=== PATIENT | male | born 1935 | race Caucasian/White ===

== ENCOUNTER 2018-04-13 09:22 | Day surgery (SDC) | payer MEDICARE, BC ==
[2018-04-13] VITALS (7 sets, daily range): BP systolic 114–141; BP diastolic 52–88
[~2018-04-13] VITALS: Ht 170.2 cm; Wt 88.0 kg
--- NOTE | 2018-04-13 06:57 | Anethesia Preoperative Eval ---
Anesthesia Pre-op PMH/ROS General Date of Evaluation: Apr 13, 2018 Time of Evaluation: 06:56 Anesthesiologist: ra ASA Score: ASA 4 Mallampati Score Class I : Soft palate, uvula, fauces, pillars visible Class II: Soft palate, uvula, fauces visible Class III: Soft palate, base of uvula visible Class IV: Only hard plate visible Mallampati Classification: Class II Surgeon: najma Diagnosis: abdominal pain Surgical Procedure: egd/colonoscopy Anesthesia History: none Social History: smoking - nonsmoker Family History: no anesthesia problems Allergies: Coded Allergies: CODEINE (Verified Allergy, Severe, 04/13/18) ANAPHYLACTIC SHOCK DICLOFENAC (Verified Allergy, Severe, 04/13/18) anaphylactic shock MEPERIDINE (Verified Adverse Reaction, Severe, 04/13/18) VOMITING Medications: see eMAR Past Medical History Cardiovascular: Reports: HTN, CAD, NV, other - cardiac stent Gastrointestinal/Genitourinary: Reports: GERD Endocrine: Reports: DM HEENT: Reports: cataract (L), cataract (R) Musculoskeletal/Integumentary: Reports: OA Anesthesia Pre-op Phys. Exam Physician Exam Last Vital Signs Date Time Temp Pulse Resp B/P (MAP) Pulse Ox O2 Delivery O2 Flow Rate FiO2 04/13/18 10:29 98.1 55 20 141/73 (95) 98 98.1 04/13/18 10:27 Room Air Constitutional: NAD Neurologic: CN 2-12 intact Cardiovascular: RRR Respiratory: CTA Gastrointestinal: S/NT/ND Airway Exam Mallampati Score: Class II MO: limited Neck: short TMD: 2fb ROM: limited Anesthesia Pre-op A/P Risk Assessment & Plan Assessment: asa4 Plan: mac Status Change Before Surgery: No Pre-Antibiotics Drug: Socorro Torres MD Apr 13, 2018 06:57
[~2018-04-13 09:22] MED LIST: ASPIRIN81 M1 PO; Atropine Inj 1mg/10ml Syr IV PRN; CALCIUM500 MG PO; CRESTOR10 MG PO; DiphenhydrAMINE 50mg/ml Inj IVP PRN; FLAXSEED OIL1000 M1 PO; FLOMAX0.4 MG PO; KRISTALOSE20 GM PO; LR 1000ml 1,000 ML IVLG SCH; Labetalol 5mg/ml 20ml vial IV PRN; MAGNESIUM PLUS GT; Midazolam 2mg/2ml Inj IVP PRN; NEXIUM40 MG PO; NIASPAN500 MG PO; PLAVIX75 MG PO; PROSCAR5 MG PO; TOPROL XL25 MG PO; VITAMIN D33000 UNIT PO
[2018-04-13] MEDS ORDERED: OMEPRAZOLE40 M1 ORAL (10:26)
[2018-04-13] MEDS ORDERED: METOPROLOL TAR100 M1 ORAL (10:26)
[2018-04-13] MEDS ORDERED: Atropine Sulfate 0.4mg/ml inj ONE (13:00)
[2018-04-13] MEDS ORDERED: Propofol 200mg/20ml IV ONE (13:00)
[2018-04-13] MEDS ORDERED: LR 1000ml ONE (13:00)
[2018-04-13] MEDS ORDERED: Lidocaine 1% MPF 10mg/ml 5ml ONE (13:00)
--- NOTE | 2018-04-13 13:10 | Short Stay Surgery H&P ---
History of Present Illness History of Present Illness Chief Complaint Abdominal pains and screening colon history of familial colon CA HPI Hank De La Cruz is a 83 year old male who was admitted on for Abdominal Pain/ screening colon Patient History Allergies: Coded Allergies: CODEINE (Verified Allergy, Severe, 04/13/18) ANAPHYLACTIC SHOCK DICLOFENAC (Verified Allergy, Severe, 04/13/18) anaphylactic shock MEPERIDINE (Verified Adverse Reaction, Severe, 04/13/18) VOMITING PAST MEDICAL HISTORY: (1) Hypertension (2) Hyperlipidemia (3) BPH (benign prostatic hyperplasia) (4) Coronary artery disease Medication History Scheduled Aspirin (Aspirin), 81 MG PO DAILY, (Reported) Clopidogrel Bisulfate* (Plavix*), 75 MG PO DAILY, (Reported) Finasteride* (Proscar*), 5 MG PO DAILY, (Reported) Metoprolol Tartrate* (Metoprolol Tartrate*), 100 MG ORAL da, (Reported) Omeprazole (Omeprazole), 40 MG ORAL DAILY, (Reported) Rosuvastatin Calcium* (Crestor*), 5 MG PO QHS, (Reported) Tamsulosin HCl (Flomax), 0.4 MG PO DAILY, (Reported) Miscellaneous Medications Cholecalciferol (Vitamin D3) (Vitamin D3), 3,000 UNIT PO, (Reported) Magnesium (Magnesium Plus), 1 EA GT, (Reported) Niacin (Niaspan), 500 MG PO, (Reported) Discontinued Medications Calcium Carbonate (Calcium), 500 MG PO, (Reported) Discontinued Reason: Pt stopped taking med Esomeprazole Magnesium (Nexium), 40 MG PO DAILY, (Reported) Discontinued Reason: Pt stopped taking med Flaxseed Oil (Flaxseed Oil), 1,000 MG PO, (Reported) Discontinued Reason: Pt stopped taking med Lactulose (Kristalose), 20 GM PO, (Reported) Discontinued Reason: Pt stopped taking med Review of Systems Cardiovascular: Reports: hypertension Respiratory: Reports: no symptoms Skeletal: Reports: no symptoms Gastrointestinal: Reports: gastro esophageal reflux disease Genitourinary: Reports: BPH Neurologic: Reports: no symptoms Endocrine: Reports: no symptoms Hematologic: Reports: no symptoms Physical Exam Vital Signs Last Vital Signs Date Time Temp Pulse Resp B/P (MAP) Pulse Ox O2 Delivery O2 Flow Rate FiO2 04/13/18 10:29 98.1 55 20 141/73 (95) 98 98.1 04/13/18 10:27 Room Air Skin: normal HENT: normal Heart: normal Lungs: normal Abdomen: abnormal Extremities: normal Genitourinary: normal Plan Plan of Care Upper and lower GI endoscopy with biopsy Preop Interventions None Summary of Findings see the reports Attestation Are the patient's medical conditions optimized for surgery? Attestation Response: yes Adrian Jimenez MD Apr 13, 2018 13:10
--- NOTE | 2018-04-13 13:11 | Pre-Procedure Note/Attestation ---
Pre-Procedure Note/Attestation Complete Prior to Procedure Planned Procedure: left Procedure Narrative: Examination of the upper and lower GI tract via endoscopy Indications for Procedure Pre-Operative Diagnosis: R/O gastric peptic ulcer/ gastritis/colon CA/polyps Attestation I attest that I discussed the nature of the procedure; its benefits; risks and complications; and alternatives (and the risks and benefits of such alternatives ), prior to the procedure, with the patient (or the patient's legal compliance representative dealer). I attest that, if there was a reasonable possibility of needing a blood transfusion, the patient (or the patient's legal compliance representative dealer) was given the [facility] standardized written summary, pursuant to the [place] Blood Safety Act ([place] Health and Safety Code # 1645, as amended). I attest that I re-evaluated the patient just prior to the surgery and that there has been no change in the patient's H&P, except as documented below: Adrian Jimenez MD Apr 13, 2018 13:11
--- NOTE | 2018-04-13 14:15 | Discharge Instructions ---
Discharge Instructions Discharge Instructions Follow up with: Visit the the doctor in office after 2 weeks For Congestive Heart Failure Reminder Report to your physician any weight gain of 5 pounds or more in one week. Adrian Jimenez MD Apr 13, 2018 14:15
--- NOTE | 2018-04-13 14:15 | Endoscopy Procedure Note ---
Endoscopy Procedure Note General Indication for Procedure: abdominal pains and GERD with history of familaial colon CA/ screening colo Procedures Performed: EGD - Few hyperplastic fundic type 2-3 mm polipoid lesions found in the gastric body that seem to be casued by use of PPI tat was biopsied and looked benign. a random biopsy from gastric body also obtained., colonoscopy - High redandandcy of left colon with finding of a peduncultaed 5 mm polypod lesion in distal transverse colon that was removed with hot snare; otherwise normal total colon Specimen: yes Pt Tolerated Procedure Well: Yes Estimated Blood Loss: none Anesthesia Anesthesiologist: Dr. Robles Anesthesia: moderate sedation Medications Medication Given: see anesthesia record Inserted Devices Implant(s) used?: No Quality Quality of Bowel Preparation: Poor Did scope reach the cecum?: Yes Was there any complications?: No GI Core Measures 50 yrs or older w/o bx or poly: Yes 10yrs. F/U not recommended: No If not recommended, why?: <3yrs. since last colonoscopy: No Med reason:<3 yrs.: System Reason:<3 yrs.: Last colonoscopy >= to 3yrs: Yes Adrian Jimenez MD Apr 13, 2018 14:15
--- NOTE | 2018-04-13 14:27 | Immediate Post-Op Evaluation ---
Immediate Post-Op Evalulation Immediate Post-Op Evalulation Procedure: egd/colonoscopy/bx Date of Evaluation: Apr 13, 2018 Time of Evaluation: 14:22 IV Fluids: 550ml lr Blood Products: none Estimated Blood Loss: neglgible Blood Pressure Systolic: 124 Blood Pressure Diastolic: 52 Pulse Rate: 78 Respiratory Rate: 18 O2 Sat by Pulse Oximetry: 100 Temperature (Fahrenheit): 97.3 Pain Score (1-10): 0 Nausea: No Vomiting: No Complications none Patient Status: awake, reacts, patent Hydration Status: adequate Drug: Socorro Torres MD Apr 13, 2018 14:27
--- NOTE | 2018-04-13 14:28 | 48 Hour Post Anesthesia Eval ---
Post Anesthesia Evaluation Procedure: egd/colonoscopy/bx Date of Evaluation: Apr 13, 2018 Time of Evaluation: 14:27 Blood Pressure Systolic: 140 0: 77 Pulse Rate: 73 Respiratory Rate: 18 Temperature (Fahrenheit): 97.3 O2 Sat by Pulse Oximetry: 99 Airway: patent Nausea: No Vomiting: No Pain Intensity: 0 Hydration Status: adequate Cardiopulmonary Status: stable Mental Status/LOC: patient returned to baseline Post-Anesthesia Complications: none Follow-up care needed: N/A Socorro Connors MD Apr 13, 2018 14:28
--- NOTE | 2018-04-13 20:00 | Procedure Note ---
DATE OF PROCEDURE: 04/13/2018 SURGEON: Adrian Jimenez M.D. PROCEDURE: Esophagogastroduodenoscopy with biopsy. PREOPERATIVE DIAGNOSIS: Abdominal pain and history of gastroesophageal reflux, rule out gastritis. POSTOPERATIVE DIAGNOSES: A few fundic type polypoid lesions found in the body of the stomach related to possibly side effects of PPI, otherwise completely normal upper GI endoscopy. Random biopsy from gastric body and one of the small polyps was obtained. Otherwise normal study. MEDICATION USED: Per Dr. Robles, anesthesiologist. INSTRUMENT: GIF Olympus upper GI video endoscope. DESCRIPTION OF PROCEDURE: The patient after arriving at endoscopy unit, was told about risks and benefits of the procedure, which he accepted and signed informed consent. At this time, he was put in the left lateral decubitus position. After adequate IV sedation, the scope was gently passed through the cricopharyngeal area, was lodged into the upper esophagus, and gradually advanced towards the gastroesophageal junction. The entire length of esophagus looked normal. No evidence of varices, inflammatory process, ulcers, etc. was found. GE junction also looked normal. At this time, the scope was advanced into the stomach. Gastric cavity was distended with insufflation of air. The whole gastric mucosa looked normal without any evidence of ulcers or gastritis. However, there was a small 1 to 2 mm polypoid lesions in the greater curvature side of the stomach, which were consistent with hyperplastic polypoid lesions of fundic type, which seems to be related to the use of PPIs that the patient has been taking for a long period of time. The rest of the stomach looked normal and one random biopsy from gastric body was also obtained. At this time, the scope was passed through the pylorus. First and second portion of duodenum were found to be completely normal. At this time, the scope was pulled out and the procedure was terminated. The patient tolerated the procedure well. Adrian Jimenez M.D. DR: YESY JOB#: [id number] CC:
--- NOTE | 2018-04-13 20:15 | Procedure Note ---
DATE OF PROCEDURE: 04/13/2018 SURGEON: Adrian Jimenez M.D. PROCEDURE: Total colonoscopy with polypectomy. PREOPERATIVE DIAGNOSIS: History of familial colon cancer/screening colonoscopy. POSTOPERATIVE DIAGNOSES: 1. A 0.5 cm pedunculated polypoid lesion found in the distal transverse colon removed with a snare hot biopsy forceps. Otherwise, complete normal study to the base of the cecum as examined. 2. Poor colonic preparation and high redundancy of the left colon. MEDICATIONS USED: Per Dr. Robles, anesthesiologist. INSTRUMENT: GIF Olympus videocolonoscope. DESCRIPTION OF PROCEDURE: The patient after arriving endoscopy unit, was told about risks and benefits of the procedure, which he accepted and signed informed consent. He was then put in the left lateral decubitus position. After adequate IV sedation, the scope was gently passed through the anal area and advanced into the rectum in retroflexion maneuver, which was applied here did not reveal any major hemorrhoids or rectal lesions or pathologies. At this point, the scope was passed through highly redundant left colon, which took significant amount of time to pass through. The colon cleanup was not adequate and there was significant amount of liquidy stool along the colon. However with constant irrigation, underlying mucosa seemed to be normal. However, upon reaching to distal transverse colon, one could see a pedunculated polypoid lesion that looked completely benign, sized about 4 to 5 mm. At this time, it was grabbed with hot snare forceps and totally removed and sent to the pathology lab. The site of polypectomy did not reveal any bleeding. At this time, the scope was gradually passed through the rest of the transverse colon reaching to hepatic flexure and finally was guided into the right colon all the way to the base of the cecum. All these areas also remained to be normal. At this time, the scope within 7 minutes was gradually pulled out. The procedure was terminated. No other pathology found. The patient tolerated the procedure well and left the endoscopy room in a good condition. Adrina Jimenez M.D. DR: YESY JOB#: [id number] CC:
== END 2018-04-13 15:10 | disposition home or self-care (01) ==
LOC: GAS 09:22
DX: Z12.11 Encounter for screening for malignant neoplasm of colon (principal); K63.5 Polyp of colon; Q43.8 Other specified congenital malformations of intestine; Z80.0 Family history of malignant neoplasm of digestive organs; R10.9 Unspecified abdominal pain; K31.9 Disease of stomach and duodenum, unspecified; I10 Essential (primary) hypertension; E78.5 Hyperlipidemia, unspecified; N40.0 Benign prostatic hyperplasia without lower urinary tract symptoms; I25.10 Atherosclerotic heart disease of native coronary artery without angina pectoris; Z95.5 Presence of coronary angioplasty implant and graft; I25.2 Old myocardial infarction; K21.9 Gastro-esophageal reflux disease without esophagitis; E11.9 Type 2 diabetes mellitus without complications; M19.90 Unspecified osteoarthritis, unspecified site; Z79.82 Long term (current) use of aspirin; Z88.5 Allergy status to narcotic agent; Z88.8 Allergy status to other drugs, medicaments and biological substances
CPT/HCPCS: 43239; 45385; J0461; J2704; J7120; 94003; 94150